=== PATIENT | male | born 1930 | race Caucasian/White ===

== ENCOUNTER 2017-05-15 14:52 | Emergency (ER) | payer MEDICARE ==
[~2017-05-15] VITALS: Ht 167.6 cm; Wt 54.5 kg
[2017-05-15] MEDS ORDERED: METF500T4 PO (15:26)
[2017-05-15 15:32] LABS: GLUCOSE,POINT OF CARE 250 MG/DL (70-110)
[2017-05-15] MEDS ORDERED: PERTUSS(ACELL),DIPH,TET VAC/PF 0.5 ML VIAL IM ONE (16:30)
[2017-05-15] MEDS ORDERED: IBUPROFEN 800 MG TABLET PO ONE (16:30)
[2017-05-15] MEDS ORDERED: SODIUM CHLORIDE 0.9% 1,000 ML IV ONE (16:45)
[2017-05-15 18:45] VITALS: BP 147/73
== END 2017-05-15 18:54 | disposition home or self-care (01) ==
LOC: EMS 14:56
DX: S22.32XA Fracture of one rib, left side, initial encounter for closed fracture (principal); E11.65 Type 2 diabetes mellitus with hyperglycemia; J45.909 Unspecified asthma, uncomplicated; Y08.89XA Assault by other specified means, initial encounter; Y93.89 Activity, other specified; Y92.89 Other specified places as the place of occurrence of the external cause; Y99.8 Other external cause status
CPT/HCPCS: 71101; 82948; 82962; 90471; 90715; 93005; 99284